=== PATIENT | female | born 1985 | race Caucasian/White ===

== ENCOUNTER 2016-09-04 23:08 | Emergency (ER) | payer OTHER ==
[2016-02-15 05:46] VITALS: BMI 25.0
[~2016-09-04 23:08] MED LIST: BUSPAR5 MG PO; CELEXA20 MG PO; FERROUS SULFAT325 MG PO; HYDROCODON-ACE1 EAC7 PO; IBUPROFEN600 MG PO; KLONOPIN0.5 MG PO; MACROBID100 MG PO; PRENATAL COMPLE1 TAB PO
[2016-09-04 23:31] LABS: APPEARANCE CLOUDY (CLEAR); BILIRUBIN NEGATIVE (NEGATIVE); COLOR YELLOW (YELLOW); GLUCOSE NEGATIVE (NEGATIVE); KETONE NEGATIVE (NEGATIVE); LEUKOCYTE ESTERASE 1+ (NEGATIVE); NITRITE NEGATIVE (NEGATIVE); PROTEIN TRACE mg/dL (NEGATIVE); SPECIFIC GRAVITY 1.015 (1.005-1.020); UROBILINOGEN NORMAL (NORMAL)
[2016-09-04 23:32] LABS: AMORPHOUS SEDIMENT >1+ /lpf (NONE SEEN); BACTERIA NONE SEEN /hpf (NONE SEEN); EPITHELIAL CELLS 0-5 /hpf (0-5)
[2016-09-04 23:39] LABS: BASOPHILS 0.1 % (0-2); EOSINOPHILS 1.3 % (0-7); HEMATOCRIT 38.6 % (36.0-48.0); HEMOGLOBIN 12.9 g/dL (12-16); IMMATURE GRANULOCYTES 0.2 % (0-5); LYMPHOCYTES 38.9 % (15-50); MCH 29.8 pg (26.0-34.0); MCHC 33.4 g/dL (31.0-37.0); MCV 89.1 fL (80.0-100.0); MEAN PLATELET VOLUME 9.8 fL (7.4-10.4); MONOCYTES 7.6 % (2-11); NEUTROPHILS 51.9 % (40-80); RBC 4.33 10x6/uL (4.00-5.40); WBC 12.3 10x3/uL (4.8-10.8)
[2016-09-04 23:42] LABS: PLATELET COUNT 262 10x3/uL (130-400)
[2016-09-04 23:52] LABS: HCG SERUM NEGATIVE (NEGATIVE); INR 1.04 (0.85-1.17); PROTIME 13.4 SECONDS (11.6-15.0)
[2016-09-04 23:56] LABS: ALKALINE PHOSPHATASE 53 U/L (46-116); ALT (SGPT) 20 U/L (10-68); BILIRUBIN - TOTAL 0.16 mg/dL (0.2-1.3); CALC OSMOLALITY 276 mosm/kg (275-300); CARBON DIOXIDE 25.5 mmol/L (21.0-32.0); CHLORIDE - SERUM 105 mmol/L (98-107); CREATININE - SERUM 0.8 mg/dL (0.6-1.3); GLUCOSE 82 mg/dL (74-106); PROTEIN - SERUM 7.2 g/dL (6.4-8.2); SODIUM 140 mmol/L (136-145); UREA NITROGEN 11 mg/dL (7-18); eGFR NON AFRICAN AMERICAN 90 mL/min (90-120)
[2016-09-05 00:07] LABS: HCG - QUANTITATIVE (MATERNAL) 0 mIU/mL
== END 2016-09-05 00:55 | disposition left against medical advice (07) ==
LOC: D.ER 23:08
PROVIDERS: Emergency Medicine
DX: N93.9 Abnormal uterine and vaginal bleeding, unspecified (principal); F17.200 Nicotine dependence, unspecified, uncomplicated

== ENCOUNTER 2017-03-06 05:04 | Day surgery (SDC) | payer OTHER ==
[2017-03-04 14:35] LABS: BASOPHILS 0.2 % (0-2); EOSINOPHILS 1.1 % (0-7); HEMATOCRIT 38.8 % (36.0-48.0); HEMOGLOBIN 13.2 g/dL (12-16); IMMATURE GRANULOCYTES 0.2 % (0-5); LYMPHOCYTES 42.3 % (15-50); MCH 29.9 pg (26.0-34.0); MEAN PLATELET VOLUME 9.9 fL (7.4-10.4); MONOCYTES 6.7 % (2-11); NEUTROPHILS 49.5 % (40-80); PLATELET COUNT 245 10x3/uL (130-400); RBC 4.41 10x6/uL (4.00-5.40); RDW 12.3 % (11.5-14.5); WBC 10.8 10x3/uL (4.8-10.8)
[~2017-03-06] VITALS: Ht 154.9 cm; Wt 47.6 kg
[~2017-03-06 05:04] MED LIST changes: +LEXAPRO10 MG PO
[2017-03-06 07:05] VITALS: BP 86/66; BMI 19.8
[2017-03-06 07:13] LABS: HCG URINE NEGATIVE (NEGATIVE)
[2017-03-06 09:32] VITALS: Ht 154.9 cm; Wt 47.6 kg
== END 2017-03-06 12:15 | disposition home or self-care (01) ==
LOC: D.OPS 05:04 → D.PAN 09:15 → D.OPS 09:30
PROVIDERS: Obstetrics & Gynecology
DX: N84.0 Polyp of corpus uteri (principal); N92.0 Excessive and frequent menstruation with regular cycle; F32.9 Major depressive disorder, single episode, unspecified; F41.9 Anxiety disorder, unspecified; F17.200 Nicotine dependence, unspecified, uncomplicated; Z79.899 Other long term (current) drug therapy

== ENCOUNTER 2017-10-02 10:27 | Emergency (ER) | payer MEDICAID ==
[~2017-10-02] VITALS: Ht 154.9 cm; Wt 50.0 kg
[2017-10-02 10:33] VITALS: Ht 154.9 cm; Wt 50.0 kg
[2017-10-02 11:32] LABS: BASOPHILS 0.2 % (0-2); EOSINOPHILS 2.2 % (0-7); HEMATOCRIT 40.2 % (36.0-48.0); HEMOGLOBIN 13.7 g/dL (12-16); IMMATURE GRANULOCYTES 0.1 % (0-5); LYMPHOCYTES 37.7 % (15-50); MCH 30.4 pg (26.0-34.0); MCHC 34.1 g/dL (31.0-37.0); MCV 89.1 fL (80.0-100.0); MEAN PLATELET VOLUME 10.1 fL (7.4-10.4); MONOCYTES 6.8 % (2-11); PLATELET COUNT 237 10x3/uL (130-400); RBC 4.51 10x6/uL (4.00-5.40); RDW 12.6 % (11.5-14.5); WBC 9.6 10x3/uL (4.8-10.8)
[2017-10-02 11:51] LABS: APPEARANCE HAZY (CLEAR); BILIRUBIN NEGATIVE (NEGATIVE); COLOR YELLOW (YELLOW); GLUCOSE NEGATIVE (NEGATIVE); KETONE NEGATIVE (NEGATIVE); NITRITE NEGATIVE (NEGATIVE); PROTEIN TRACE mg/dL (NEGATIVE); UROBILINOGEN NORMAL (NORMAL)
[2017-10-02 11:53] LABS: BACTERIA MODERATE /hpf (NONE SEEN); MUCUS >1+ /lpf (NONE SEEN); WHITE CELLS - URINE 0-5 /hpf (0-5)
[2017-10-02 11:54] LABS: EPITHELIAL CELLS 0-5 /hpf (0-5); RED CELLS - URINE 0-5 /hpf (0-5)
[2017-10-02 11:55] LABS: HCG SERUM NEGATIVE (NEGATIVE)
[2017-10-02 11:59] LABS: ALBUMIN 4.1 g/dL (3.4-5.0); ALKALINE PHOSPHATASE 38 U/L (46-116); ALT (SGPT) 15 U/L (10-68); BILIRUBIN - TOTAL 0.41 mg/dL (0.2-1.3); CALC OSMOLALITY 283 mosm/kg (275-300); CALCIUM 8.7 mg/dL (8.5-10.1); CARBON DIOXIDE 29.7 mmol/L (21.0-32.0); CHLORIDE - SERUM 106 mmol/L (98-107); CREATININE - SERUM 0.5 mg/dL (0.6-1.3); GLUCOSE 97 mg/dL (74-106); POTASSIUM - SERUM 3.3 mmol/L (3.5-5.1); PROTEIN - SERUM 7.3 g/dL (6.4-8.2); SODIUM 143 mmol/L (136-145); UREA NITROGEN 11 mg/dL (7-18); eGFR NON AFRICAN AMERICAN > 90 mL/min (90-120)
[2017-10-02 13:49] VITALS: BP 101/60
== END 2017-10-02 13:50 | disposition home or self-care (01) ==
LOC: D.ER 10:27
PROVIDERS: Emergency Medicine
DX: N93.9 Abnormal uterine and vaginal bleeding, unspecified (principal); F17.200 Nicotine dependence, unspecified, uncomplicated